=== PATIENT | female | born 1955 | race Caucasian/White ===

== ENCOUNTER 2017-04-26 23:05 | Inpatient (IN) | payer OTHER ==
[~2017-04-26] VITALS: Ht 162.6 cm; Wt 49.0 kg
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
[2017-04-26 23:13] VITALS: BP 189/106
[2017-04-26] MEDS ORDERED: TRAMADOL 50 MG50 MG PO (23:23)
[2017-04-26] MEDS ORDERED: EXCEDRIN CAPLE1 EACH PO (23:24)
[2017-04-27 03:56] LABS: HEMATOCRIT 30.8 % (37.0-47.0); MCHC 32.5 g/dL (28.0-37.0); MCV 85.9 fL (80.0-100.0); RBC 3.59 mil/uL (4.20-5.00); RDW 15.5 % (10.5-14.5); WBC 15.1 thou/uL (4.0-11.0)
[2017-04-27 04:02] LABS: CALCIUM 8.7 mg/dL (8.5-10.1); CREATININE 0.8 mg/dL (0.6-1.0); POTASSIUM 3.3 mmol/L (3.5-5.1)
[2017-04-27 04:47] VITALS: BP 144/86
[2017-04-27 05:31] VITALS: BP 165/94
[2017-04-27 06:09] VITALS: BP 179/87
[2017-04-27 08:20] VITALS: BP 172/91
[2017-04-27 16:10] VITALS: BP 138/66
[2017-04-27 20:43] VITALS: BP 129/52
[2017-04-28 05:19] VITALS: BP 127/52
[2017-04-28 08:15] VITALS: BP 138/67
[2017-04-28] MEDS ORDERED: AUGMENTIN 875-1 EACH PO (09:52)
[2017-04-28] MEDS ORDERED: HYDROCODON-ACE1 EAC7 PO (12:19)
== END 2017-04-28 14:30 | disposition home or self-care (01) | DRG 872 ==
LOC: ER 23:05 → EROBS 04-27 03:45 → 4S 04-27 03:45 → ENTRNSPT 04-28 12:26 → EDTRNSPTSTS 04-28 12:28 → CMPTRNSPT 04-28 13:34 → 4S 04-28 14:30
PROVIDERS: Emergency Medicine
PROC: 2W3EX1Z Immobilization of Right Hand using Splint (ICD-10-PCS; principal; 2017-04-27)
DX: A41.9 Sepsis, unspecified organism (principal); I10 Essential (primary) hypertension; M79.7 Fibromyalgia; E87.6 Hypokalemia; S51.851A Open bite of right forearm, initial encounter; W54.0XXA Bitten by dog, initial encounter; Y93.89 Activity, other specified; Z85.828 Personal history of other malignant neoplasm of skin; Y92.89 Other specified places as the place of occurrence of the external cause; Y99.8 Other external cause status; Z23 Encounter for immunization
CPT/HCPCS: 10195